=== PATIENT | male | born 1995 | race Two or more races ===

== ENCOUNTER → 2021-03-24 | Emergency (ER) | payer MEDICAID ==
[~2021-03-24] VITALS: Ht 193 cm; Wt 111.1 kg
[2021-03-24 04:55] VITALS: BP 132/78
== END | disposition left against medical advice (07) ==
LOC: ER 04:35 → EDBD 04:35
DX: F41.9 Anxiety disorder, unspecified (principal); Z53.21 Procedure and treatment not carried out due to patient leaving prior to being seen by health care provider